=== PATIENT | female | born 1950 | race Hispanic/Latino ===

== ENCOUNTER 2016-11-14 18:05 | Emergency (ER) | payer MEDICAID ==
[2016-11-14 18:05] VITALS: BMI 28.6
[2016-11-14 18:16] VITALS: BP 158/93; PULSE 88; RESP 18; TEMP 99; O2SAT 99
--- NOTE | 2016-11-14 18:41 | ED PDOC ---
HPI: General Adult Time Seen by Provider: 11/14/16 18:17 Chief Complaint (Nursing): Medical Clearance History Per: Patient Additional Complaint(s): Pt. states her sister has been in the hospital to have C. Diff and E. Coli and that she's been changing her diapers and came in contact with her stool. Also states today she was informed by her sisters to get checked out to make sure she also does not have the infection. Denies diarrhea, abdominal pain, fever, N/ V, SI/HI, hallucinations. Offers no complaints at this time. Past Medical History Reviewed: Historical Data, Nursing Documentation, Vital Signs Vital Signs: Last Vital Signs Temp 99 F 11/14/16 18:13 Pulse 88 11/14/16 18:13 Resp 18 11/14/16 18:13 BP 158/93 H 11/14/16 18:13 Pulse Ox 99 11/14/16 18:13 - Family History Family History: States: No Known Family Hx Other Family History: , hysterectomy - Home Medications Home Medications: Ambulatory Orders Medication Instructions Recorded Levothyroxine [Synthroid] 100 mcg PO ONCE 02/21/15 Nitrofurantoin Macrocrystals 100 mg PO BID #14 cap 12/24/15 [Macrobid] - Allergies Allergies/Adverse Reactions: Allergies Allergy/AdvReac Type Severity Reaction Status Date / Time peanut Allergy ANAPHYLAXIS Verified 12/24/15 17:55 Review of Systems ROS Statement: Except As Marked, All Systems Reviewed And Found Negative Physical Exam - Physical Exam Appears: Positive for: Well, Non-toxic, No Acute Distress Skin: Positive for: Normal Color, Warm. Negative for: Rash Gastrointestinal/Abdominal: Positive for: Normal Exam, Bowel Sounds, Soft. Negative for: Tenderness Back: Positive for: Normal Inspection. Negative for: L CVA Tenderness, R CVA Tenderness Extremity: Positive for: Normal ROM Neurologic/Psych: Positive for: Alert, Oriented - ECG O2 Sat by Pulse Oximetry: 99 - Progress ED Course And Treament: Pt. instructed to f/u with [facility] if diarrhea, abdominal pain, or fever develops. Disposition - Clinical Impression Clinical Impression: Anxiety - Patient ED Disposition Is Patient to be Admitted: No - Disposition Referrals: [facility] [Outside] Disposition: Routine/Home Disposition Time: 18:35 Condition: STABLE Instructions: Normal Exam (ED) Print Language: INDONESIAN
== END 2016-11-14 18:45 | disposition home or self-care (01) ==
LOC: H.ER 18:05
DX: F41.9 Anxiety disorder, unspecified (principal); Z91.010 Allergy to peanuts

== ENCOUNTER 2017-03-24 08:12 | Emergency (ER) | payer MEDICAID ==
[2017-03-24 08:12] VITALS: BMI 28.6
[2017-03-24] MEDS ORDERED: Sodium Chloride 0.9% 1,000 ML IV STA (09:22)
[2017-03-24 09:42] LABS: SQUAMOUS EPITHIAL 1 /hpf (0-5); URINE BILIRUBIN NEGATIVE (NEGATIVE); URINE BLOOD MODERATE (NEGATIVE); URINE CLARITY CLOUDY (Clear); URINE COLOR YELLOW (YELLOW); URINE GLUCOSE (UA) NEG (Normal); URINE LEUKOCYTE ESTERASE LARGE Leu/uL (Negative); URINE NITRATE NEGATIVE (NEGATIVE); URINE PROTEIN 30 mg/dL (NEGATIVE); URINE UROBILINOGEN 0.2-1.0 mg/dL (0.2-1.0)
--- NOTE | 2017-03-24 09:47 | ED PDOC ---
HPI: Female Pain Time Seen by Provider: 03/24/17 08:49 Chief Complaint (Nursing): Back Pain Chief Complaint (Provider): Abdominal pain History Per: Patient History/Exam Limitations: no limitations Onset/Duration Of Symptoms: Days (x3), Persistent Current Symptoms Are (Timing): Still Present Quality Of Discomfort: "Pain" Associated Symptoms: Urinary Symptoms (dysuria, and urinary frequency) Additional Complaint(s): Vilma Ya is a 66 year old female, with a past surgical history of hysterectomy and appendectomy, who presents to the emergency department complaining of constant abdominal pain that radiates to the back associated with urinary frequency and dysuria onset for x3 days. Patient reports similar symptoms in the past for UTI. She denies any diarrhea, chest pain, shortness of breath, cough, congestion, fever or chills. No further medical complaints. PMD: Ozzy Ballard Past Medical History Reviewed: Historical Data, Nursing Documentation, Vital Signs Vital Signs: Last Vital Signs Temp 98.0 F 03/24/17 09:04 Pulse 79 03/24/17 09:04 Resp 16 03/24/17 09:04 BP 113/79 03/24/17 09:04 Pulse Ox 97 03/24/17 09:04 - Medical History Other PMH: uti - Surgical History Surgical History: Appendectomy Other surgeries: hysterectomy - Family History Family History: States: Unknown Family Hx - Social History Alcohol: None Drugs: Denies - Home Medications Home Medications: Ambulatory Orders Medication Instructions Recorded Levothyroxine [Synthroid] 100 mcg PO ONCE 02/21/15 Nitrofurantoin Macrocrystals 100 mg PO BID #14 cap 12/24/15 [Macrobid] Ibuprofen [Motrin] 600 mg PO TID 7 Days tab 03/24/17 Nitrofurantoin Macrocrystals 100 mg PO BID #10 cap 03/24/17 [Macrobid] - Allergies Allergies/Adverse Reactions: Allergies Allergy/AdvReac Type Severity Reaction Status Date / Time peanut Allergy ANAPHYLAXIS Verified 12/24/15 17:55 Review of Systems ROS Statement: Except As Marked, All Systems Reviewed And Found Negative Constitutional: Negative for: Fever, Chills ENT: Negative for: Nose Congestion Cardiovascular: Negative for: Chest Pain Respiratory: Negative for: Cough, Shortness of Breath Gastrointestinal: Positive for: Abdominal Pain (radiates to the back). Negative for: Diarrhea Genitourinary Female: Positive for: Dysuria, Frequency Musculoskeletal: Positive for: Back Pain Physical Exam - Reviewed Nursing Documentation Reviewed: Yes Vital Signs Reviewed: Yes - Physical Exam Appears: Positive for: Non-toxic Head Exam: Positive for: ATRAUMATIC, NORMAL INSPECTION, NORMOCEPHALIC Skin: Positive for: Normal Color, Warm, Dry Eye Exam: Positive for: Normal appearance, EOMI, PERRL Neck: Positive for: Painless ROM, Supple Cardiovascular/Chest: Positive for: Regular Rate, Rhythm. Negative for: Murmur Respiratory: Positive for: Normal Breath Sounds (clear b/l). Negative for: Respiratory Distress Gastrointestinal/Abdominal: Positive for: Tenderness (diffused). Negative for: Guarding, Rebound Back: Positive for: Normal Inspection. Negative for: L CVA Tenderness, R CVA Tenderness, Vertebral Tenderness Extremity: Positive for: Normal ROM. Negative for: Tenderness, Deformity, Swelling Neurologic/Psych: Positive for: Alert, Oriented - Laboratory Results Result Diagrams: 03/24/17 09:59 03/24/17 09:59 Interpretation Of Abn Labs: no acute - ECG O2 Sat by Pulse Oximetry: 97 (RA) Pulse Ox Interpretation: Normal - CT Scan/US ct Other Rad Studies (CT/US): Read By Radiologist Other Rad Interpretation: no acute - Progress ED Course And Treament: 1403: Stable. Pain free. Tolerated po. FU. AAOx3. Medical Decision Making Medical Decision Making: Initial Impression: UTI Initial Plan: --Abd & Pelvis IV Contrast [CT] --CMP --Lipase --Urine dip --CBC w/ differential --Toradol 15mg IVP --Sodium Chloride 1,000 ml IV 1,000 mls/hr --Zofran Inj 4 mg IV --Urine culture --Urinalysis --Reevaluation 13:22 Abdomen & Pelvis CT FINDINGS: LOWER THORAX: The current study reveals minor passive/dependent type atelectasis both posterior lower lung zones left greater than right. There also appears to be some linear pleural based on scarring left posterior sulcus. No effusion or basilar pneumothorax. Heart size within range of normal. No significant pericardial effusion. LIVER: Liver exhibits normal size measuring approximately 14 cm in CC dimension. GALLBLADDER AND BILE DUCTS: Gallbladder is physiologically distended. No evidence of intraluminal gallbladder calculi. PANCREAS: Unremarkable. No mass. No ductal dilatation. SPLEEN: Spleen exhibits normal size and attenuation pattern without mass collection or calcification. ADRENALS: There are no adrenal lesions seen. KIDNEYS AND URETERS: Kidneys demonstrate relatively symmetric size. No evidence of nephrolithiasis. There is mild columnization of the right proximal ureter two 1st approximately mid pelvis level. The ureter distal to this exhibits normal caliber with no obvious evidence of distal ureteral calculi so far as can be seen. Re- demonstrated is a small rounded approximately 14 mm low-attenuation focus midpole right kidney likely represent small cysts. There may also be a tiny cyst. There is also a small approximately 8.7 mm rounded low-attenuation focus lateral aspect lower pole left kidney also felt to represent small BLADDER: Urinary bladder appears incompletely distended which presumably accounts for slight thick-walled appearance. . Correlation with urinalysis recommended to exclude the possibility of a cystitis REPRODUCTIVE: The uterus is not visualized consistent with prior hysterectomy. Clinical correlation with surgical history. APPENDIX: Previously noted retrocecal appendix is not visible on this exam and there also appears to be radiopaque suture along the cecal region. Clinic correlation with surgical history recommended. BOWEL: Evaluation of the bowel is limited due to the lack of oral contrast material. The stomach is incompletely distended which presumably accounts for slight thick -walled appearance. Visualized loops of small bowel exhibit normal contour and caliber. No evidence of acute mechanical small bowel obstruction. Stool and air seen throughout the large bowel. No definitive abnormal mural wall thickening. PERITONEUM: Unremarkable. No fluid collection. No free air. LYMPH NODES: Unremarkable. No enlarged lymph nodes. VASCULATURE: Unremarkable. No aortic aneurysm. BONES: Renal cysts. The Minor multilevel degenerative spondylosis of the lower thoracic and lumbar spine. Minor chronic anterior wedge deformities of a few lower thoracic segments. . Apparent hemangioma within the L5 segment. OTHER FINDINGS: None. IMPRESSION: No evidence of nephrolithiasis or hydronephrosis. Mild columnization proximal right ureter however no evidence of ureteral calculi. Urinary bladder is incompletely distended which may presumably account for minimal thick-walled appearance. Correlation with urinalysis recommended. . Small bilateral renal cysts as above. . Status post appendectomy. Changes of hysterectomy Scribe Attestation: Documented by Harley Pozo, acting as a scribe for Vikram Garvin MD Provider Scribe Attestation: All medical record entries made by the Scribe were at my direction and personally dictated by me. I have reviewed the chart and agree that the record accurately reflects my personal performance of the history, physical exam, medical decision making, and the department course for this patient. I have also personally directed, reviewed, and agree with the discharge instructions and disposition. Disposition - Clinical Impression Clinical Impression: UTI (urinary tract infection), Abdominal pain - Patient ED Disposition Is Patient to be Admitted: No Counseled Patient/Family Regarding: Studies Performed, Diagnosis, Need For Followup, Rx Given - Disposition Referrals: [facility] [Outside] - 03/28/17 Disposition: Routine/Home Disposition Time: 14:05 Condition: STABLE Additional Instructions: Return if not better in 3 days. Prescriptions: Ibuprofen [Motrin] 600 mg PO TID 7 Days tab Nitrofurantoin Macrocrystals [Macrobid] 100 mg PO BID #10 cap Instructions: Acute Abdomen (Belly Pain), Adult (DC), Urinary Tract Infections in Adults Forms: 12Return (Ugandan)
[2017-03-24 10:09] LABS: URINE BACTERIA RARE (<OCC)
[2017-03-24 10:10] LABS: BASO # 0.1 K/uL (0.0-0.2); BASO % 1.2 % (0.0-2.0); EOS # 0.2 K/uL (0.0-0.7); EOS % 3.7 % (0.0-4.0); HEMOGLOBIN 14.7 g/dL (12.0-16.0); LYMPH # 0.9 K/uL (1.0-4.3); LYMPH % 14.9 % (20.0-40.0); MEAN CELL VOLUME 92.3 fl (81.0-99.0); MEAN CORPUSCULAR HEMOGLOBIN 30.4 pg (27.0-31.0); MEAN PLATELET VOLUME 8.1 fl (7.2-11.7); MONO # 0.5 K/uL (0.0-0.8); NEUT # 4.5 K/uL (1.8-7.0); NEUT % 72.2 % (50.0-75.0); RBC 4.81 Mil/uL (3.80-5.20); RED CELL DISTRIBUTION WIDTH 13.6 % (11.5-14.5); WHITE BLOOD COUNT 6.2 K/uL (4.8-10.8)
[2017-03-24 10:18] LABS: ALB/GLOB RATIO 1.5 (1.0-2.1); ALBUMIN 4.2 g/dL (3.5-5.0); ALT/SGPT 25 U/L (9-52); AST/SGOT 23 U/L (14-36); BLOOD UREA NITROGEN 14 mg/dl (7-17); CALCIUM 9.2 mg/dL (8.4-10.2); GFR AFRICAN-AMERICAN > 60; GFR NON-AFRICAN AMERICAN > 60; LIPASE 81 U/L (23-300)
[2017-03-24] MEDS ORDERED: Sodium Chloride 0.9% 0 ML IV ONE (11:50)
[2017-03-24] MEDS ORDERED: Iohexol 300 100 ML IJ ONE (11:50)
--- NOTE | 2017-03-24 13:23 | CT ---
PROCEDURE: CT scan abdomen pelvis dated 03/24/2017 HISTORY: Rule out stone COMPARISON: Comparison made with prior CT scan of the abdomen pelvis dated 02/29/2012. Comparison also made with prior CT scan chest 02/21/2015 which partially image the upper abdomen. TECHNIQUE: Contiguous axial images of the abdomen and pelvis performed without oral or intravenous contrast. Additional 2 dimensional sagittal and coronal reformats generated. Radiation dose: Total exam DLP = This CT exam was performed using one or more of the following dose reduction techniques: Automated exposure control, adjustment of the mA and/or kV according to patient size, and/or use of iterative reconstruction technique. FINDINGS: LOWER THORAX: The current study reveals minor passive/dependent type atelectasis both posterior lower lung zones left greater than right. There also appears to be some linear pleural based on scarring left posterior sulcus. No effusion or basilar pneumothorax. Heart size within range of normal. No significant pericardial effusion. LIVER: Liver exhibits normal size measuring approximately 14 cm in CC dimension. GALLBLADDER AND BILE DUCTS: Gallbladder is physiologically distended. No evidence of intraluminal gallbladder calculi. PANCREAS: Unremarkable. No mass. No ductal dilatation. SPLEEN: Spleen exhibits normal size and attenuation pattern without mass collection or calcification. ADRENALS: There are no adrenal lesions seen. KIDNEYS AND URETERS: Kidneys demonstrate relatively symmetric size. No evidence of nephrolithiasis. There is mild columnization of the right proximal ureter two 1st approximately mid pelvis level. The ureter distal to this exhibits normal caliber with no obvious evidence of distal ureteral calculi so far as can be seen. Re- demonstrated is a small rounded approximately 14 mm low-attenuation focus midpole right kidney likely represent small cysts. There may also be a tiny cyst. There is also a small approximately 8.7 mm rounded low-attenuation focus lateral aspect lower pole left kidney also felt to represent small BLADDER: Urinary bladder appears incompletely distended which presumably accounts for slight thick-walled appearance. . Correlation with urinalysis recommended to exclude the possibility of a cystitis REPRODUCTIVE: The uterus is not visualized consistent with prior hysterectomy. Clinical correlation with surgical history. APPENDIX: Previously noted retrocecal appendix is not visible on this exam and there also appears to be radiopaque suture along the cecal region. Clinic correlation with surgical history recommended. BOWEL: Evaluation of the bowel is limited due to the lack of oral contrast material. The stomach is incompletely distended which presumably accounts for slight thick-walled appearance. Visualized loops of small bowel exhibit normal contour and caliber. No evidence of acute mechanical small bowel obstruction. Stool and air seen throughout the large bowel. No definitive abnormal mural wall thickening. PERITONEUM: Unremarkable. No fluid collection. No free air. LYMPH NODES: Unremarkable. No enlarged lymph nodes. VASCULATURE: Unremarkable. No aortic aneurysm. BONES: Renal cysts. The Minor multilevel degenerative spondylosis of the lower thoracic and lumbar spine. Minor chronic anterior wedge deformities of a few lower thoracic segments. . Apparent hemangioma within the L5 segment. OTHER FINDINGS: None. IMPRESSION: No evidence of nephrolithiasis or hydronephrosis. Mild columnization proximal right ureter however no evidence of ureteral calculi. Urinary bladder is incompletely distended which may presumably account for minimal thick-walled appearance. Correlation with urinalysis recommended. . Small bilateral renal cysts as above. . Status post appendectomy. Changes of hysterectomy
[2017-03-24 14:51] VITALS: BP 114/70; PULSE 70; RESP 18; TEMP 98.2; O2SAT 99
== END 2017-03-24 14:51 | disposition home or self-care (01) ==
LOC: H.ER 08:12
DX: N39.0 Urinary tract infection, site not specified (principal); N28.1 Cyst of kidney, acquired; Z90.710 Acquired absence of both cervix and uterus
CPT/HCPCS: 74176; 80053; 81003; 83690; 85025; 87086; 87181; 96374; 99282; J1885; J7040

== ENCOUNTER 2017-06-05 09:10 | Emergency (ER) | payer MEDICAID ==
[2017-06-05 09:14] VITALS: BMI 27.0
[2017-06-05 09:15] VITALS: BP 139/78; PULSE 75; RESP 16; TEMP 97.6; O2SAT 98
--- NOTE | 2017-06-05 09:45 | ED PDOC ---
HPI: General Adult Time Seen by Provider: 06/05/17 09:20 Chief Complaint (Nursing): Back Pain Chief Complaint (Provider): Pain History Per: Patient History/Exam Limitations: no limitations Onset/Duration Of Symptoms: Days (years) Additional Complaint(s): Pt. with pain to the right neck, shoulder, right upper back. Ongoing for years. No numbness, tingles, weakness. No headache, cough, fever. No vision changes. No chest pain. No dyspnea. No abd pain. No leg pain. Sees Dr. Ballard for the pain management and gets a shot. Not able to get an appointment Tuesday. Past Medical History Reviewed: Nursing Documentation, Vital Signs Vital Signs: Last Vital Signs Temp 97.6 F 06/05/17 09:14 Pulse 75 06/05/17 09:14 Resp 16 06/05/17 09:14 BP 139/78 06/05/17 09:14 Pulse Ox 98 06/05/17 09:14 - Medical History PMH: Hypothyroidism, Osteoporosis Other PMH: chronic pain - Surgical History Surgical History: Appendectomy - Family History Family History: States: Unknown Family Hx - Home Medications Home Medications: Ambulatory Orders Medication Instructions Recorded Levothyroxine [Synthroid] 100 mcg PO ONCE 02/21/15 Nitrofurantoin Macrocrystals 100 mg PO BID #14 cap 12/24/15 [Macrobid] Ibuprofen [Motrin] 600 mg PO TID 7 Days tab 03/24/17 Nitrofurantoin Macrocrystals 100 mg PO BID #10 cap 03/24/17 [Macrobid] Ciprofloxacin [Cipro] 500 mg PO BID #10 tab 03/26/17 - Allergies Allergies/Adverse Reactions: Allergies Allergy/AdvReac Type Severity Reaction Status Date / Time peanut Allergy ANAPHYLAXIS Verified 06/05/17 09:39 Review of Systems Constitutional: Negative for: Chills, Weakness Eyes: Negative for: Vision Change Cardiovascular: Negative for: Chest Pain, Edema, Light Headedness Respiratory: Negative for: Shortness of Breath Gastrointestinal: Negative for: Nausea, Vomiting, Abdominal Pain Genitourinary Female: Negative for: Dysuria Musculoskeletal: Positive for: Neck Pain, Shoulder Pain. Negative for: Arm Pain Skin: Negative for: Rash Neurological: Negative for: Weakness, Numbness Physical Exam - Reviewed Nursing Documentation Reviewed: Yes Vital Signs Reviewed: Yes - Physical Exam Head Exam: Positive for: ATRAUMATIC, NORMAL INSPECTION, NORMOCEPHALIC ENT: Positive for: Normal ENT Inspection Neck: Positive for: Supple, Trachea Midline. Negative for: Normal (mild tender right lateral neck) Cardiovascular/Chest: Positive for: Regular Rate, Rhythm, Chest Non Tender. Negative for: Edema Respiratory: Positive for: Normal Breath Sounds Pulses-Radial (R): 2+ Back: Positive for: Normal Inspection. Negative for: L CVA Tenderness, R CVA Tenderness Extremity: Positive for: Normal ROM. Negative for: Tenderness, Pedal Edema Neurologic/Psych: Positive for: Alert, casting machine set up operator II-XII, Oriented. Negative for: Motor/Sensory Deficits - ECG O2 Sat by Pulse Oximetry: 98 Pulse Ox Interpretation: Normal - Progress ED Course And Treament: 947: Stable. AAOx3. Pain free post meds. Chronic pain no new injury or pain today. Wanted shot for pain. Will fu with pcp in 3 days. Disposition - Clinical Impression Clinical Impression: Chronic pain - Patient ED Disposition Is Patient to be Admitted: No Counseled Patient/Family Regarding: Studies Performed, Diagnosis (s) - Disposition Referrals: [facility] [Outside] - 06/06/17 Disposition: Routine/Home Disposition Time: 09:54 Condition: STABLE Additional Instructions: Return if not better in 3 days. Instructions: Chronic Pain (DC)
== END 2017-06-05 10:15 | disposition home or self-care (01) ==
LOC: H.ER 09:10
DX: M54.9 Dorsalgia, unspecified (principal)
CPT/HCPCS: 96372; 99283; J1885

== ENCOUNTER 2017-06-21 06:03 | Emergency (ER) | payer MEDICAID ==
[2017-06-21 06:04] VITALS: BMI 27.0
[2017-06-21] MEDS ORDERED: Morphine 4 MG/ML VIAL ONE (07:44)
[2017-06-21 08:25] LABS: BASO # 0.1 K/uL (0.0-0.2); BASO % 1.2 % (0.0-2.0); EOS # 0.3 K/uL (0.0-0.7); HEMOGLOBIN 14.8 g/dL (12.0-16.0); LYMPH # 1.1 K/uL (1.0-4.3); LYMPH % 17.5 % (20.0-40.0); MEAN CORPUSCULAR HEMOGLOBIN 30.7 pg (27.0-31.0); MEAN CORPUSCULAR HGB CONC 34.1 g/dL (33.0-37.0); MONO # 0.6 K/uL (0.0-0.8); MONO % 8.7 % (0.0-10.0); NEUT # 4.4 K/uL (1.8-7.0); NEUT % 67.6 % (50.0-75.0); NRBC % 0.1 % (0.0-0.0); RBC 4.82 Mil/uL (3.80-5.20); RED CELL DISTRIBUTION WIDTH 13.2 % (11.5-14.5); WHITE BLOOD COUNT 6.5 K/uL (4.8-10.8)
[2017-06-21 08:26] LABS: BLOOD UREA NITROGEN 16 mg/dl (7-17); CALCIUM 9.3 mg/dL (8.4-10.2); GFR AFRICAN-AMERICAN > 60; GFR NON-AFRICAN AMERICAN > 60
[2017-06-21] MEDS ORDERED: Morphine 4 MG/ML VIAL IVP ONE (09:15)
--- NOTE | 2017-06-21 10:45 | ED PDOC ---
Upper Extremity Pain/Injury Time Seen by Provider: 06/21/17 07:24 Chief Complaint (Nursing): Chest Pain History Per: Patient History/Exam Limitations: no limitations Onset/Duration Of Symptoms: Persistent, Other (1 month) Current Symptoms Are (Timing): Still Present Quality: Sharp, Dull Severity: Severe Pain Scale Rating Of: 10 Exacerbating Factor(s): Strenuous Use Of Affected Area, Movement Additional History Per: Patient Additional Complaint(s): Patient c/o Right shoulder adn arm pain for 1 month. Taking vicodin and flexeril at home with some relief. Denies any weakness or numbness. No fevers. No chest pain. Patient is due to follow up with her pain management and ortho at [facility]. Past Medical History Reviewed: Historical Data, Nursing Documentation, Vital Signs Vital Signs: Last Vital Signs Temp 98.0 F 06/21/17 06:18 Pulse 81 06/21/17 06:18 Resp 16 06/21/17 06:18 BP 129/85 06/21/17 06:18 Pulse Ox 96 06/21/17 06:18 - Medical History PMH: Hypothyroidism, Osteoporosis - Surgical History Surgical History: Appendectomy - Family History Family History: States: Unknown Family Hx - Home Medications Home Medications: Ambulatory Orders Medication Instructions Recorded Levothyroxine [Synthroid] 100 mcg PO ONCE 02/21/15 Nitrofurantoin Macrocrystals 100 mg PO BID #14 cap 12/24/15 [Macrobid] Ibuprofen [Motrin] 600 mg PO TID 7 Days tab 03/24/17 Nitrofurantoin Macrocrystals 100 mg PO BID #10 cap 03/24/17 [Macrobid] Ciprofloxacin [Cipro] 500 mg PO BID #10 tab 03/26/17 - Allergies Allergies/Adverse Reactions: Allergies Allergy/AdvReac Type Severity Reaction Status Date / Time peanut Allergy ANAPHYLAXIS Verified 06/05/17 09:39 Review of Systems ROS Statement: Except As Marked, All Systems Reviewed And Found Negative Physical Exam - Reviewed Nursing Documentation Reviewed: Yes Vital Signs Reviewed: Yes - Physical Exam Appears: Positive for: Well, Non-toxic, No Acute Distress Head Exam: Positive for: ATRAUMATIC, NORMAL INSPECTION Skin: Positive for: Warm, Dry Eye Exam: Positive for: EOMI ENT: Positive for: Normal ENT Inspection Cardiovascular/Chest: Positive for: Regular Rate, Rhythm Respiratory: Positive for: Normal Breath Sounds. Negative for: Respiratory Distress Extremity: Positive for: Normal ROM Neurologic/Psych: Positive for: Alert, Oriented - Laboratory Results Result Diagrams: 06/21/17 08:01 06/21/17 08:01 - ECG O2 Sat by Pulse Oximetry: 96 Medical Decision Making Medical Decision Making: Impression Right arm pain, chronic Plan Pain control IV morphine Labs reassess 1100 Patient is improved and agreable with discharge. Disposition - Clinical Impression Clinical Impression: Arm pain, right - Patient ED Disposition Is Patient to be Admitted: No Doctor Will See Patient In The: Office Counseled Patient/Family Regarding: Studies Performed, Diagnosis, Need For Followup - Disposition Referrals: [facility] [Outside] Disposition: Routine/Home Disposition Time: 11:00 Condition: GOOD Additional Instructions: Take your medications as instructed. Follow up with your pain specialist and client specialist within 4-5 days. Instructions: Radiculopathy
[2017-06-21 11:03] VITALS: BP 122/82; PULSE 71; RESP 18; TEMP 98
[2017-06-23 12:54] VITALS: O2SAT 96
== END 2017-06-21 11:14 | disposition home or self-care (01) ==
LOC: H.ER 06:03
DX: M79.601 Pain in right arm (principal); E03.9 Hypothyroidism, unspecified; M81.0 Age-related osteoporosis without current pathological fracture